=== PATIENT | female | born 1950 | race Caucasian/White ===

== ENCOUNTER 2016-09-20 11:51 | Observation (INO) | payer OTHER ==
--- NOTE | ~2016-09-20 | NM69 ---
[facility] A Service [facility] RADIOLOGY TEXT RESULTS PATIENT: SATYA PARKER LOCATION: [facility] 54- : 48 UNIT #: [id number] AGE: [address]: Naun Chavira MD SEX: F ORDER DR: [id number] [facility] [address] [facility] [place], [place] [address] [id number] I MR#: [id number] #: [id number] NAME: SATYA PARKER. : 1950 SEX: F STUDY DATE/TIME: 09/20/2016 15:02 UNIT: [facility] ROOM: [facility] STUDY DESCRIPTION: NM Pulm Vent and Perf Attending Physician: Naun Chavira M.D. Ordering Physician: Jie Holland M.D. Primary Care Physician: Kristopher Herman M.D. MEDICAL IMAGING REPORT This report is preliminary unless electronic signature is present EXAM V/Q scan, 09/20. INDICATIONS Shortness of air and chest pain that started yesterday. Elevated D-dimer level. FINDINGS Ventilation images were obtained after the administration of 33.2 mCi of technetium 99m - DTPA aerosol. Corresponding perfusion images were obtained after the IV administration of 5.9 mCi of technetium 99m - MAA. Comparison made with chest x-ray obtained 09/20/2016 at 1244 hours. Ventilation and perfusion tracer deposition in the lungs is somewhat heterogeneous. However, no V/Q mismatches are seen. No clearly segmental perfusion defects are identified. Study is low probability for pulmonary embolism. IMPRESSION Low probability for pulmonary embolism. Dictated by... Sander Montano Jr., M.D. THIS IS AN ELECTRONICALLY VERIFIED REPORT Sander Montano Jr., M.D. at 09/21/2016 7:10 AM COSTA/jose g TD: 09/20/2016 19:56 JOB #: [id number] MEDICAL IMAGING REPORT [facility] A Service of [facility] RADIOLOGY TEXT RESULTS PATIENT: SATYA PARKER LOCATION: [facility] 548-01 : 48 UNIT #: [id number] AGE: [address]: Naun Chavira MD SEX: F ORDER DR: Page 1 of 1 COPY
--- NOTE | ~2016-09-20 | EKG ---
PATIENT: SATYA PARKER UNIT #: [id number] Ventricular Rate: 49 BPM Atrial Rate: 49 BPM P-R Interval: 204 ms QRS Duration: 144 ms Q-T Interval: 520 ms QTC Calculation(Bezet): 469 ms P [place]: 73 degrees Calculated R [place]: 4 degrees Calculated T [place]: 39 degrees Diagnosis Line: Marked sinus bradycardia Diagnosis Line: Right bundle branch block Diagnosis Line: Abnormal ECG Diagnosis Line: When compared with ECG of 22-SEP-2016 06:21, Diagnosis Line: (unconfirmed) Diagnosis Line: No significant change was found Diagnosis Line: Confirmed by LEVI VERDIN MD ([id number]) on Diagnosis Line: 09/24/2016 9:54:06 AM INTERPRETING BIN GASTELUM
--- NOTE | ~2016-09-20 | EKG ---
PATIENT: SATYA PARKER UNIT #: [id number] Ventricular Rate: 54 BPM Atrial Rate: 54 BPM P-R Interval: 196 ms QRS Duration: 140 ms Q-T Interval: 484 ms QTC Calculation(Bezet): 458 ms P [place]: 47 degrees Calculated R [place]: 15 degrees Calculated T [place]: 34 degrees Diagnosis Line: Sinus bradycardia Diagnosis Line: Right bundle branch block Diagnosis Line: Abnormal ECG Diagnosis Line: When compared with ECG of 21-SEP-2016 06:48, Diagnosis Line: (unconfirmed) Diagnosis Line: No significant change was found Diagnosis Line: Confirmed by LEVI VERDIN MD ([id number]) on Diagnosis Line: 09/24/2016 9:53:21 AM INTERPRETING BIN GASTELUM
--- NOTE | ~2016-09-20 | ST ---
Unit #: [id number] #: [id number] Patient: SATYA PARKER [id number] [place], [place] [address] [id number] I MR#: [id number] NAME: SATYA PARKER. : 1950 SEX: F STUDY DATE/TIME: UNIT: C5B ROOM: 548 STUDY DESCRIPTION: Stress Test Attending Physician: Naun Chavira M.D. Primary Care Physician: Kristopher Herman M.D. CARDIOLOGY REPORT EXAM Lexiscan Cardiolite Stress Test DESCRIPTION Baseline EKG - sinus bradycardia, heart rate 54 beats/minute, right bundle branch block, Q wave in V1. Lexiscan is a four minute test with Lexiscan being injected within the first minute followed by Cardiolite. EKG during the test was equivocal to baseline. Continues to show the right bundle branch block. The patient had no complaints of chest pain, palpitations or dizziness. Had increased shortness of breath and fatigueness which resolved in recovery phase. Maximum heart rate response was 72 beats/minute with a maximum blood pressure response of 145/52 mmHg. Cardiolite was injected after Lexiscan within the first minute of the test. Radionuclide test pending. Please correlate with nuclear images. Dictated by... Penelope Gilman A.P.R.N. for SSusan Thompson M.D. MYRNA/holley TD: 09/23/2016 12:49 JOB #: [id number] Unit #: [id number] #: [id number] Patient: SATYA PARKER CARDIOLOGY REPORT Page 1 of 1 X Penelope Gilman APRN CARDIOLOGY REPORT
--- NOTE | ~2016-09-20 | TH ---
Unit #: [id number] #: [id number] Patient: SATYA PARKER [id number] [address] [address] [id number] I MR#: [id number] NAME: SATYA PARKER. : 1950 SEX: F STUDY DATE/TIME: UNIT: C5B ROOM: 548 STUDY DESCRIPTION: Nuclear Study Attending Physician: Naun Chavira M.D. Primary Care Physician: Kristopher Herman M.D. CARDIOLOGY REPORT EXAM Nuclear Stress Test DESCRIPTION The patient received 30 mCi of Cardiolite at rest and 30 mCi of Cardiolite following pharmacological stress with 0.4 mg of Lexiscan. This was done as part of a two day protocol. Tomographic slices were obtained. Images processed in the short axis, vertical and horizontal long axis views. Gated images were used to assess LV ejection fraction. Review of rotating raw data reveals both soft tissue attenuation artifact anteriorly as well as motion artifact that has affected imaging quality. Post stress images revealed left ventricular cavity size to be normal. There is a very small focal area of diminished tracer uptake involving the anterior wall of the left ventricle. The defect is small in size, mild to moderate in intensity. Resting images reveals homogeneous uptake of tracer. Review of polar plot images reveals a summed stress score of 9 with a summed difference score of 4. By gated SPECT imaging, wall motion is normal with normal systolic wall thickening. Gated ejection fraction is 54%. IMPRESSION 1. Mildly abnormal Cardiolite perfusion scan. 2. Imaging quality is suboptimal due to soft tissue attenuation artifact and motion artifact as described above and tracer uptake is patchy. 3. There is a very small focal area of reversibility involving the anterior wall of the left ventricle as described. 4. No evidence of prior infarction. 5. Normal left ventricular wall motion by gated SPECT imaging with a normal ejection fraction as described. Gated ejection fraction of 54%. RECOMMENDATIONS A very small vocal area of reversibility is noted in the anterior wall of the left ventricle. Imaging quality is suboptimal for the reasons mentioned above. Consider further workup if clinically indicated. Unit #: [id number] #: [id number] Patient: SATYA PARKER Dictated by.Elham Vaughan/holley TD: 09/23/2016 12:52 JOB #: [id number] CARDIOLOGY REPORT Page 1 of 1 X Miguel Thompson MD CARDIOLOGY REPORT
--- NOTE | ~2016-09-20 | HP ---
Unit #: [id number] #: [id number] Patient: SATYA PARKER [id number] [address] [address] [id number] I MR#: [id number] NAME: SATYA PARKER. ROOM: 548 Age: 66 Sex: F Admission Date: 09/20/2016 : 1950 Attending Physician: Naun Chavira M.D. Primary Care Physician: Kristopher Herman M.D. HISTORY AND PHYSICAL HISTORY OF PRESENT ILLNESS This is a 66-year-old female who has a history of coronary artery disease where she underwent four-vessel coronary artery bypass graft in [address] elevation myocardial infarction. She is known to have hypertension, hyperlipidemia, and COPD. The patient presents to the emergency room with a complaint of chest pain. She describes pain that radiates across her entire chest into her back with no associated dyspnea, palpitations, nausea, or dizziness. She describes the pain as a sharp burning type pain that is constant. Her chest pain has been ongoing for two days. She took three sublingual nitroglycerin on the day prior to her admission and two nitroglycerin on the day of admission without any relief. In the emergency room, she was ruled out for an acute myocardial infarction where troponin was negative. Her electrocardiogram shows right bundle branch block but no acute ischemic changes. She had an elevated D-dimer but V/Q scan was negative. PAST MEDICAL HISTORY 1. Non ST elevation myocardial infarction, status post cardiac catheterization in 2006 with subsequent coronary artery bypass graft x4, May 16, 2006, per Dr. Mott at [facility] with SILVA to LAD, reverse individual saphenous vein graft to the upper and lower obtuse marginal branch and distal right coronary artery. Postoperative cerebellar infarct. Left carotid stenosis with 60% to 70% stenosis on the left. 2. Hypertension. 3. Hyperlipidemia. 4. COPD. 5. Obesity. 6. Lupus. 7. Former smoker. PAST SURGICAL HISTORY 1. Hysterectomy. 2. Thyroidectomy. 3. Tonsil and adenoidectomy. 4. Repair of ankle fracture. 5. Breast abscess removed. SOCIAL HISTORY The patient is and retired. She previously smoked a quarter pack cigarettes daily but has not smoked for many years. There is no report of illicit drug or alcohol use. Unit #: [id number] #: [id number] Patient: SATYA PARKER FAMILY HISTORY Has two brothers who has had coronary artery bypass surgery. Mother also had coronary artery disease. ALLERGIES Iodine. HOME MEDICATIONS 1. Amlodipine 10 mg daily. 2. Aquaphor ointment one application topically b.i.d. 3. Aspirin 81 mg daily. 4. Atorvastatin 80 mg daily. 5. Plavix 75 mg daily. 6. Plaquenil 200 mg b.i.d. 7. Isosorbide mononitrate 60 mg daily. 8. Levothyroxine 125 mcg daily except Sunday and Sunday when she takes one and a half tablets. 9. Zestril 40 mg daily. 10. Mobic 15 mg daily p.r.n. 11. Methotrexate 2.5 mg four tablets once a week. 12. Metoprolol tartrate 25 mg b.i.d. 13. Nitroglycerin 0.4 mg sublingual q.5 minutes p.r.n. 14. Protonix 40 mg daily. 15. Zoloft 50 mg daily. 16. Spiriva one inhalation daily. 17. Triamcinolone acetonide as directed. 18. Albuterol two puffs b.i.d. p.r.n. 19. Vitamin D2 at 50,000 units weekly. REVIEW OF SYSTEMS CONSTITUTIONAL: Negative for fever or chills. Has no weight gain or weight loss. HEENT: No headache, vision change, or difficulty with swallowing. Negative for dizziness. CARDIOVASCULAR: Has chest pain described in the HPI. Denies palpitations. No paroxysmal nocturnal dyspnea or orthopnea. Denies syncope or near syncope. RESPIRATORY: Negative for dyspnea, cough, or hemoptysis. GASTROINTESTINAL: No abdominal pain, nausea, or vomiting. No constipation. No melena. EXTREMITIES: Negative for lower extremity edema. PHYSICAL EXAMINATION VITAL SIGNS: Blood pressure 131/51, heart rate 61, temperature 98.7, BMI is 37. GENERAL: This is a 66-year-old obese white female who is in no acute respiratory distress. NEUROLOGIC: She is awake, alert, and oriented. There are no focal weaknesses. NECK: Trachea is midline. No thyromegaly or lymphadenopathy. No jugular venous distention. HEART: S1, S2 heart sounds are normal. No murmurs. No rubs. No clicks. Regular rate and rhythm. LUNGS: Clear without rales, rhonchi, wheezes. ABDOMEN: Soft, nontender. Bowel sounds are present. EXTREMITIES: Without leg edema. SKIN: Warm and dry. Unit #: [id number] #: [id number] Patient: SATYA PARKER DIAGNOSTIC STUDIES LABORATORY: Glucose 88, BUN 12, creatinine 0.9, sodium 140, potassium 4.1. CK total is 78, MB 1.8, MB index 2.3, troponin less than 0.05 x2 and less than 0.03. BNP 151. D-dimer 924. White count 6.8, hemoglobin 11.7, hematocrit 35.7, platelet count 206,000. IMAGING: Chest x-ray shows no active disease. V/Q scan: Low probability for pulmonary embolism. CARDIOVASCULAR: Electrocardiogram: Sinus bradycardia with a rate of 53 beats per minute with right bundle branch block. IMPRESSION 1. Chest pain, questionable etiology. 2. History of four-vessel coronary artery bypass graft in [address] elevation myocardial infarction. 3. Hypertension. 4. Hyperlipidemia. 5. History of perioperative stroke. 6. Chronic obstructive pulmonary disease. PLAN 1. The patient has been ruled out for an acute myocardial infarction with negative cardiac enzymes and troponin. Unable to do Lexiscan Cardiolite stress test because of V/Q scan. Will schedule the patient for cardiac catheterization since no prior workup since her coronary artery bypass graft in 2006. She still has some residual chest pain. Risks and benefits have been explained to the patient including bleeding, renal or vascular complications, allergy to dye, myocardial infarction, and . She is agreeable. 2. Will optimize cardiac medicines. 3. Premedicate with prednisone, Benadryl, and Pepcid given iodine allergy. 4. Further recommendations pending results of the cardiac catheterization. Dictated by Rosales Tubbs A.P.R.N. for Elham Malagon TD: 09/21/2016 17:08 JOB #: [id number] Unit #: [id number] #: [id number] Patient: SATYA PARKER HISTORY AND PHYSICAL Page 1 of 1 X Rosales Tubbs APRN X HISTORY AND PHYSICAL
--- NOTE | ~2016-09-20 | CR72 ---
[facility] A Service of [facility] RADIOLOGY TEXT RESULTS PATIENT: SATYA PARKER LOCATION: [facility] 548-01 : 48 UNIT #: [id number] AGE: [address]: Naun Chavira MD SEX: F ORDER DR: [id number] [facility] [address] [place], [place] [address] [id number] MR#: [id number] Acc #: [id number] NAME: SATYA PARKER : 1950 SEX: F STUDY DATE/TIME: 09/20/2016 12:44 UNIT: JL ROOM: STUDY DESCRIPTION: CR Chest Single View Portable Attending Physician: Jie Holland M.D. Ordering Physician: Jie Holland M.D. Primary Care Physician: Kristopher Herman M.D. MEDICAL IMAGING REPORT This report is preliminary unless electronic signature is present EXAM Chest portable 09/20/2016 1244 hours. HISTORY Left-sided chest pain with shortness of air since yesterday. COMPARISON 02/12/2008 FINDINGS Single upright portable view demonstrates prior median sternotomy change with normal heart size. Mediastinal, hilar, and aortic contours are normal. Lungs are well expanded and clear of acute densities. There is no effusion or pneumothorax. IMPRESSION 1. Median sternotomy change with normal heart size. 2. The lungs are well expanded and clear. There is no pleural effusion or pneumothorax. Dictated by... Shruthi Huerta M.D. THIS IS AN ELECTRONICALLY VERIFIED REPORT Shruthi Huerta M.D. at 09/20/2016 8:32 PM GIANCARLO/eve TD: 09/20/2016 17:05 JOB #: [id number] MEDICAL IMAGING REPORT [facility] A Service [facility] RADIOLOGY TEXT RESULTS PATIENT: SATYA PARKER LOCATION: [facility] 548-01 : 48 UNIT #: [id number] AGE: [address]: Naun Chavira MD SEX: F ORDER DR: Page 1 of 1 COPY
--- NOTE | ~2016-09-20 | EKG ---
PATIENT: SATYA PARKER UNIT #: [id number] Ventricular Rate: 53 BPM Atrial Rate: 53 BPM P-R Interval: 206 ms QRS Duration: 140 ms Q-T Interval: 490 ms QTC Calculation(Bezet): 459 ms P [place]: 64 degrees Calculated R [place]: 7 degrees Calculated T [place]: 32 degrees Diagnosis Line: Sinus bradycardia Diagnosis Line: Right bundle branch block Diagnosis Line: Abnormal ECG Diagnosis Line: No previous ECGs available Diagnosis Line: Confirmed by SERA DOUGLAS MD ([id number]) on Diagnosis Line: 09/22/2016 7:55:39 AM INTERPRETING MD: MISAEL SINGH
--- NOTE | ~2016-09-20 | CO ---
Unit #: [id number] #: [id number] Patient: SATYA PARKER [id number] [address] [place], [place] [address] [id number] I MR#: [id number] NAME: SATYA PARKER. ROOM: 563 Age: 66 Sex: F Admission Date: 09/20/2016 : 1950 Attending Physician: Naun Chavira M.D. Primary Care Physician: Kristopher Herman M.D. Consultation Date: 09/23/2016 CONSULTATION REPORT REASON FOR CONSULTATION Possible herpes zoster. HISTORY OF PRESENT ILLNESS This is a 66-year-old white female with history of multiple medical problems including coronary artery disease, fevers, coronary artery bypass grafting, hypertension, hyperlipidemia, COPD, who presented with sudden onset of left sided chest pain, it was radiating and had more burning and neuropathic character. Given strong history of coronary artery disease, she underwent cardiac catheterization which showed some degree of narrowing of the LAD, but there was adequate distal filling. Apparently, no intervention other than cardiac catheterization has been performed. I have been asked to see her when she developed a rash this morning in the area of the pain. She had a history of chickenpox in the past, but no history of herpes zoster. She denies any fever, headache, mental status changes. No rash elsewhere. Her troponin was negative and V/Q scan was negative as well. PAST MEDICAL HISTORY Coronary artery disease, status post CABG; hypertension; hyperlipidemia; COPD; obesity; lupus; reformed smoker. PAST SURGICAL HISTORY Hysterectomy, thyroidectomy, tonsillectomy, adenoidectomy, ankle fracture repair, breast abscess drainage, as well as CABG. CURRENT MEDICATIONS Nitroglycerin, Lipitor, amlodipine, aspirin, atorvastatin, Plavix, Plaquenil, Imdur, Synthroid, Zestril, Protonix, Zoloft, and Spiriva. ALLERGIES Possible iodine related side effects. SOCIAL HISTORY She is , lives at home. She denies any alcohol, drug, or tobacco abuse at this time. FAMILY HISTORY Positive for coronary artery disease. SYSTEMIC REVIEW Left-sided chest pain with shooting, burning character of pain, now with Unit #: [id number] #: [id number] Patient: SATYA PARKER rash in that area. She has no other symptoms and detailed symptoms as recorded. PHYSICAL EXAMINATION GENERAL: Reveals a middle-aged white female, who is awake and alert, in no acute distress. She is fully conscious and oriented to time, place, and person. VITAL SIGNS: Temperature is 97.4, heart rate 52, respirations 20, blood pressure 126/43, with the admission. HEENT: Unremarkable. LUNGS: Clear. HEART: Sounds are normal. ABDOMEN: Soft and nontender. There is no rebound or guarding. Bowel sounds are normal. NEUROLOGIC: Nonfocal. SKIN: Reveal a classic herpes zoster lesion in the dermatome on the left side. The lesion does not cross the midline and they are not in any of the dermatome. Some minute blisters are present, but mostly the lesion show that the scattered nodules. DIAGNOSTIC STUDIES LABORATORY RESULTS: BMP is unremarkable. White count is 7.1, hemoglobin 12.6, platelets 235. Troponin less than 0.02. IMAGING STUDIES: V/Q scan is low probability. Chest x-ray clear of any acute infiltrates. IMPRESSION This is a classic herpes zoster involving the left dermatome There is no extradermatomal spread or disseminated disease. RECOMMENDATIONS We will start her on Valtrex 1 g t.i.d. for 7 days. Precautions were mentioned to the patient and family. Basically she should be dropped in contact isolation. The people who never had chickenpox should never enter her room as well as woman this was made very clear to the staff as well as to the family members and patient. Dictated by... Elham Charlton/qing TD: 09/25/2016 07:13 JOB #: [id number] Unit #: [id number] #: [id number] Patient: SATYA PARKER CONSULTATION REPORT Page 1 of 1 X Marco Serrato MD CONSULTATION REPORT
--- NOTE | ~2016-09-20 | EKG ---
PATIENT: SATYA PARKER UNIT #: [id number] Ventricular Rate: 56 BPM Atrial Rate: 56 BPM P-R Interval: 190 ms QRS Duration: 140 ms Q-T Interval: 498 ms QTC Calculation(Bezet): 480 ms P [place]: 61 degrees Calculated R [place]: 13 degrees Calculated T [place]: 43 degrees Diagnosis Line: Sinus bradycardia Diagnosis Line: Right bundle branch block Diagnosis Line: Abnormal ECG Diagnosis Line: When compared with ECG of 20-SEP-2016 11:58, Diagnosis Line: (unconfirmed) Diagnosis Line: No significant change was found Diagnosis Line: Confirmed by LEVI VERDIN MD ([id number]) on Diagnosis Line: 09/24/2016 9:52:04 AM INTERPRETING BIN GASTELUM
--- NOTE | ~2016-09-20 | DS ---
Unit #: [id number] #: [id number] Patient: SATYA PARKER [id number] [address] [address] [id number] I MR#: [id number] NAME: SATYA PARKER. ROOM: 563 Age: 66 Sex: F Admission Date: 09/20/2016 : 1950 Discharge Date: 09/24/2016 Attending Physician: Naun Chavira M.D. Primary Care Physician: Kristopher Herman M.D. DISCHARGE SUMMARY ADMISSION DIAGNOSES 1. Chest discomfort. 2. History of atherosclerostic heart disease with coronary artery bypass grafting in 2006. 3. History of non-ST elevated myocardial infarction. 4. History of hypertension, dyslipidemia, chronic obstructive pulmonary disease. DISCHARGE DIAGNOSES 1. Chest discomfort. 2. History of atherosclerostic heart disease with coronary artery bypass grafting in 2006. 3. History of non-ST elevated myocardial infarction. 4. History of hypertension, dyslipidemia, chronic obstructive pulmonary disease. 5. Herpes zoster. HOSPITAL COURSE Ms. Parker was admitted with complaints of chest discomfort. [place] was ruled out with serial negative troponins. BNP was 151. She underwent a coronary catheterization which showed normal left ventricle, normal left main, LAD proximally had a 40% to 50% stenosis, 80% to 90% of the second diagonal, SILVA was atretic, left circumflex was 100% occluded, saphenous vein graft to the left circumflex was occluded, saphenous vein graft to the ramus was normal, right coronary artery had a saphenous vein graft that was patent. She underwent Cardiolite Lexiscan stress test. There was no ischemia in the distribution of the LAD. There was some ischemia, but it was not in the distribution of her blockages and was felt to be mild and not contributing to her atypical symptoms. She also had the diagnosis of herpes zoster and was started on Valtrex 1000 mg every 8 hours for 7 days. On date of discharge, she was stable and ready to be discharged. She was afebrile, temp 97.7, blood pressure 110/61, heart rate 63, normal sinus rhythm. She will follow up with her primary care physician in 2 to 4 weeks. She will also follow up with her scale expert at [facility] in 2 weeks. She is being discharged home on her home medications without any changes. Ventolin 2 puffs b.i.d. as needed, triamcinolone as needed applying b.i.d., Spiriva 1 cap inhalation daily, Zoloft 50 mg daily, Lipitor 80 mg daily, Plaquenil 200 mg b.i.d., methotrexate 4 mg weekly, Aquaphor ointment b.i.d., Norvasc 10 mg daily, Lopressor 25 b.i.d., lisinopril 40 daily, aspirin 81 daily, Mobic 15 mg p.r.n., Plavix 75 mg daily, Protonix 40 mg daily, levothyroxine 125 mcg daily, Imdur 60 mg daily, nitroglycerin sublingual as needed, vitamin D2 50,000 units weekly. She will receive a prescription for Valtrex 1 g p.o. Unit #: [id number] #: [id number] Patient: ELENASATYA Miranda every 8 hours for 7 days. No refill. She will follow up with her primary care physician. Dictated by... Anant Lynn.P.R.NSusan for S. Elham Nichole/qing TD: 09/25/2016 23:48 JOB #: [id number] DISCHARGE SUMMARY Page 1 of 1 X X DISCHARGE SUMMARY
[~2016-09-20 11:51] MED LIST: ACETAMINOPHEN PO; ASPIRIN81 M2 PO; ASPIRINEC PO; ATORVASTATIN CA40 MG PO; AVALIDE 150-12.1 TAB PO; AVALIDE PO; CADUET 10 MG/101 TAB PO; CLOBETASOL 0.0560 GM TOP; FOSINOPRIL PO; LASIX PO; LISINOPRIL10 MG PO; LOPRESSOR PO; METOPROLOL TART25 MG PO; PLAQUENIL200 MG PO; PROTONIX PO; SYNTHROID PO; TOPROL XL PO; TYLOX 5/500 CAP1 CAP PO; VITAMIN D PO
[2016-09-20] MEDS ORDERED: NORVASC10 MG PO (12:19)
[2016-09-20] MEDS ORDERED: ASPIRIN81 M2 PO (12:20)
[2016-09-20] MEDS ORDERED: PLAQUENIL200 MG PO (12:20)
[2016-09-20] MEDS ORDERED: ATORVASTATIN CA80 MG PO (12:20)
[2016-09-20] MEDS ORDERED: [UNRECOGNIZED DRUG - OTHER] TOP (12:20)
[2016-09-20] MEDS ORDERED: CLOPIDOGREL75 MG PO (12:20)
[2016-09-20] MEDS ORDERED: ISOSORBIDE MONO30 MG PO (12:21)
[2016-09-20] MEDS ORDERED: SYNTHROID125 PO (12:24)
[2016-09-20] MEDS ORDERED: LISINOPRIL PO (12:24)
[2016-09-20] MEDS ORDERED: LOPRESSOR PO (12:25)
[2016-09-20] MEDS ORDERED: METHOTREXATE2.5 MG PO (12:25)
[2016-09-20] MEDS ORDERED: MOBIC PO (12:25)
[2016-09-20] MEDS ORDERED: PANTOPRAZOLE SO40 MG PO (12:26)
[2016-09-20] MEDS ORDERED: ZOLOFT PO (12:26)
[2016-09-20] MEDS ORDERED: SPIRIVA18 MCG NEB (12:26)
[2016-09-20] MEDS ORDERED: NITROGLYGERIN0.4 MG PO (12:26)
[2016-09-20] MEDS ORDERED: ALBUTEROL17 GM INH (12:27)
[2016-09-20] MEDS ORDERED: TRIAMCINOLONE AC1 GM (12:27)
[2016-09-20] MEDS ORDERED: VITAMIN D250000 UNIT PO (12:27)
[2016-09-20 12:31] LABS: BASOPHIL% 0.7 % (0-2.5); EOSINOPHIL# 0.2 X10e3 (0-0.7); EOSINOPHIL% 2.6 % (0.0-7.0); HEMATOCRIT 35.7 % (35.0-45.0); HEMOGLOBIN 11.7 gm/dL (12.0-16.0); LYMPHOCYTE# 1.1 X10e3 (1.0-3.5); LYMPHOCYTE% 15.6 % (17.0-45.0); MEAN CORPUSCULAR HEMOGLOBIN 30.5 PG (28-34); MEAN CORPUSCULAR HGB CONC 32.8 g/dL (30-36); MEAN PLATELET VOLUME 8.2 FL (6.5-11.5); MONOCYTE% 15.1 % (3.0-12.0); NEUTROPHIL# 4.5 X10e3 (1.5-7.1); PLATELET COUNT 206 X10e3 (140-420); RED BLOOD COUNT 3.84 X10e (3.90-5.30); RED CELL DISTRIBUTION WIDTH 14.9 % (11.0-15.5); WHITE BLOOD COUNT 6.8 X10e3 (4.0-10.5)
[2016-09-20 12:32] LABS: DIFF IND NO
[2016-09-20 12:43] LABS: PARTIAL THROMBOPLASTIN TIME 26.6 SECONDS (23.5-31.3); PROTHROMBIN TIME (PATIENT) 10.9 SECONDS (10.0-11.7)
[2016-09-20 13:55] LABS: POC - CKMB <1.0 ng/mL (0.0-7.9); POC - TROPONIN <0.05 ng/mL (<=0.05)
[2016-09-20 13:55] LABS: ALBUMIN SERUM 3.8 g/dL (3.5-5.0); BILIRUBIN, DIRECT 0.1 mg/dL (0.0-0.2); BILIRUBIN,INDIRECT 0.7 mg/dL (0.0-0.9); BILIRUBIN,TOTAL 0.8 mg/dL (0.2-2.0); BUN/CREATININE RATIO 13.33; CALCIUM SERUM 8.9 mg/dL (8.4-10.2); CREATININE SERUM 0.9 mg/dL (0.6-1.4); GLOM FILT RATE Estimated 65.7 mL/min (>60); POTASSIUM 4.1 mmol/L (3.5-5.1)
[2016-09-20 14:43] LABS: POC - CKMB 1.3 ng/mL (0.0-7.9); POC - TROPONIN <0.05 ng/mL (<=0.05)
[2016-09-21 05:14] LABS: %MB 2.3 % (0.0-4.0); MB 1.8 ng/ml
[2016-09-22 07:54] LABS: HEMATOCRIT 38.4 % (35.0-45.0); HEMOGLOBIN 12.6 gm/dL (12.0-16.0); MEAN CELL VOLUME 92.6 FL (83-96); MEAN CORPUSCULAR HEMOGLOBIN 30.3 PG (28-34); MEAN CORPUSCULAR HGB CONC 32.7 g/dL (30-36); MEAN PLATELET VOLUME 7.7 FL (6.5-11.5); RED BLOOD COUNT 4.15 X10e (3.90-5.30); WHITE BLOOD COUNT 7.1 X10e3 (4.0-10.5)
[2016-09-22 08:09] LABS: PARTIAL THROMBOPLASTIN TIME 26.3 SECONDS (23.5-31.3); PROTHROMBIN TIME (PATIENT) 11.1 SECONDS (10.0-11.7)
[2016-09-22 08:30] LABS: BUN/CREATININE RATIO 18.88; CALCIUM SERUM 9.1 mg/dL (8.4-10.2); CREATININE SERUM 0.9 mg/dL (0.6-1.4); GLOM FILT RATE Estimated 65.7 mL/min (>60); POTASSIUM 4.3 mmol/L (3.5-5.1)
[2016-09-24] MEDS ORDERED: TYLENOL/CODEINE1 TA1 PO (12:28)
[2016-09-24] MEDS ORDERED: VALTREX PO (12:30)
== END 2016-09-24 13:18 | disposition home or self-care (01) ==
LOC: CED 11:51 → C5B 16:38 → CEDOF 16:38 → C5B 16:38 → C5C 09-23 15:46
PROVIDERS: Emergency Medicine; Internal Medicine Cardiovascular Disease; Nurse Practitioner
DX: I25.119 Atherosclerotic heart disease of native coronary artery with unspecified angina pectoris (principal); I25.82 Chronic total occlusion of coronary artery; T82.218A Other mechanical complication of coronary artery bypass graft, initial encounter; I25.2 Old myocardial infarction; I10 Essential (primary) hypertension; E78.5 Hyperlipidemia, unspecified; J44.9 Chronic obstructive pulmonary disease, unspecified; B02.9 Zoster without complications; Z82.49 Family history of ischemic heart disease and other diseases of the circulatory system; Z86.73 Personal history of transient ischemic attack (TIA), and cerebral infarction without residual deficits
CPT/HCPCS: 36415; 71010; 78452; 78582; 80048; 80076; 82550; 82553; 83880; 84484; 85025; 85027; 85379; 85610; 85730; 93005; 93017; 94640; 94760; 99285; A9500; A9540; A9567; C1769; C1887; C1894; G0378; J1644; J2250; J2785; J3010